=== PATIENT | female | born 1945 | race Caucasian/White ===

== ENCOUNTER 2016-09-16 22:58 | Emergency (ER) | payer OTHER ==
[2016-09-17 01:29] VITALS: BP 126/74
== END 2016-09-17 01:15 | disposition home or self-care (01) ==
LOC: ED 22:58
DX: K13.0 Diseases of lips (principal); J45.909 Unspecified asthma, uncomplicated

== ENCOUNTER 2016-09-19 12:17 | Emergency (ER) | payer OTHER ==
[2016-09-19 12:26] VITALS: BP 155/86
== END 2016-09-19 14:13 | disposition home or self-care (01) ==
LOC: ED 12:17
DX: K13.0 Diseases of lips (principal); J45.909 Unspecified asthma, uncomplicated